=== PATIENT | female | born 1985 | race American Indian/Alaskan Native ===

== ENCOUNTER 2016-12-01 11:22 | Emergency (ER) | payer OTHER ==
[2016-12-01] MEDS ORDERED: Sodium Chloride 0.9% 1,000 ML IV STA (11:40)
--- NOTE | 2016-12-01 11:40 | ED PDOC ---
Arrival/HPI - General Chief Complaint: GI Problem Time Seen by Provider: 12/01/16 11:30 Historian: Patient - History of Present Illness Time/Duration: Other (Yesterday) Symptom Onset: Gradual Symptom Course: Unchanged Quality: Aching Severity Level: Moderate Activities at Onset: Rest Associated Symptoms (Text): 12/01/16 11:38 Patient was out drinking two nights ago. Yesterday she developed lower abdominal pain along with diarrhea. This morning nausea and vomiting started. She has had similar episodes multiple times previously. No dysuria frequency urgency or hematuria. No fever or chills. No travel. No vaginal discharge or bleeding. LMP is 1 week ago. Past Medical History - Infectious Disease Hx of Infectious Diseases: None - Past Medical History Past Medical History: Non-Contributing - Cardiac Hx Hypertension: Yes (GESTATIONAL) - Gastrointestinal Hx Gastrointestinal Disorders: Yes Hx Diarrhea: Yes - Genitourinary/Gynecological Hx Genitourinary Disorders: No - Psychiatric Hx Substance Use: No - Anesthesia Hx Anesthesia: No Hx Anesthesia Reactions: No Family/Social History - Physician Review Nursing Documentation Reviewed: Yes Family/Social History: Unknown Family HX Smoking Status: Light Smoker < 10 Cigarettes Daily Hx Alcohol Use: Yes Frequency of alcohol use: Socially Hx Substance Use: No Allergies/Home Meds Allergies/Adverse Reactions: Allergies No Known Allergies Allergy (Verified 12/01/16 11:23) Review of Systems - Physician Review All systems were reviewed & negative as marked: Yes - Review of Systems Constitutional: absent: Fatigue, Fevers Respiratory: Normal. absent: SOB, Cough, Wheezing Cardiovascular: Normal. absent: Chest Pain, Palpitations, Syncope Gastrointestinal: Abdominal Pain, Diarrhea, Nausea, Vomiting. absent: Constipation, Anorexia Genitourinary Female: absent: Dysuria, Frequency, Hematuria, Vaginal Bleeding, Vaginal Discharge Neurological: absent: Headache, Dizziness Physical Exam Vital Signs Temp Pulse Resp BP Pulse Ox 12/01/16 11:27 97.9 F 72 18 130/83 100 Temperature: Afebrile Blood Pressure: Normal Pulse: Regular Respiratory Rate: Normal Appearance: Positive for: Well-Appearing, Non-Toxic, Comfortable Pain Distress: None Mental Status: Positive for: Alert and Oriented X 3 - Systems Exam Head: Present: Atraumatic, Normocephalic Pupils: Present: PERRL Extroacular Muscles: Present: EOMI Conjunctiva: Present: Normal Mouth: Present: Moist Mucous Membranes Pharnyx: No: ERYTHEMA, EXUDATE, TONSILS ENLARGED Neck: Present: Normal Range of Motion. No: MIDLINE TENDERNESS, Paraspinal Tenderness Respiratory/Chest: Present: Clear to Auscultation, Good Air Exchange. No: Respiratory Distress, Accessory Muscle Use Cardiovascular: Present: Regular Rate and Rhythm, Normal S1, S2. No: Murmurs Abdomen: Present: Normal Bowel Sounds. No: Tenderness, Distention, Peritoneal Signs, Rebound, Guarding Back: Present: Normal Inspection. No: CVA Tenderness, Midline Tenderness, Paraspinal Tenderness Upper Extremity: Present: Normal Inspection. No: Cyanosis, Edema Lower Extremity: Present: Normal Inspection. No: Edema Neurological: Present: GCS=15, CN II-XII Intact, Speech Normal, Motor Func Grossly Intact Skin: Present: Warm, Dry, Normal Color. No: Rashes Psychiatric: Present: Alert, Oriented x 3, Normal Insight, Normal Concentration Medical Decision Making ED Course and Treatment: 12/01/16 12:32 Symptoms improved. Discharged home accompanied by boyfriend. Follow-up with PMD. Follow up in ER as needed. - Lab Interpretations Lab Results: 12/01/16 11:50 12/01/16 11:50 Lab Results 12/01/16 11:50: Sodium 137, Potassium 4.0, Chloride 103, Carbon Dioxide 27, Anion Gap 11, BUN 14, Creatinine 0.7, Est GFR ( Amer) > 60, Est GFR (Non- Af Amer) > 60, Random Glucose 93, Calcium 9.5, Total Bilirubin 0.9, AST 21, ALT 30, Alkaline Phosphatase 45, Total Protein 7.2, Albumin 4.1, Globulin 3.2, Albumin/Globulin Ratio 1.3, Lipase 170 12/01/16 11:50: Urine Color Yellow, Urine Appearance Clear, Urine pH 6.0, Ur Specific Hendricks 1.020, Urine Protein Negative, Urine Glucose (UA) Negative, Urine Ketones Negative, Urine Blood Moderate H, Urine Nitrate Negative, Urine Bilirubin Negative, Urine Urobilinogen 0.2, Ur Leukocyte Esterase Negative, Urine RBC 2 - 5, Urine WBC 0 - 2, Ur Epithelial Cells 1 - 3, Urine Bacteria Few , Urine HCG, Qual Negative 12/01/16 11:50: WBC 5.2, RBC 3.99, Hgb 12.2, Hct 35.6 L, MCV 89.2, MCH 30.6, MCHC 34.3, RDW 11.9, Plt Count 258, MPV 9.8, Gran % 58.4, Lymph % (Auto) 31.2, Kingfisher % (Auto) 7.9 H, Eos % (Auto) 2.3, Baso % (Auto) 0.2, Gran # 3.01, Lymph # 1.6, Kingfisher # 0.4, Eos # 0.1, Baso # 0.01 - Medication Orders Current Medication Orders: Sodium Chloride (Sodium Chloride 0.9%) 1,000 mls @ 1,000 mls/hr IV .Q1H STA Stop: 12/01/16 12:39 Last Admin: 12/01/16 11:51 Dose: 1,000 mls/hr Discontinued Medications Ketorolac Tromethamine (Toradol) 30 mg IVP STAT STA Stop: 12/01/16 11:41 Last Admin: 12/01/16 12:06 Dose: 30 mg Ondansetron HCl (Zofran Inj) 4 mg IVP STAT STA Stop: 12/01/16 11:41 Last Admin: 12/01/16 12:07 Dose: 4 mg Pantoprazole Sodium (Protonix Inj) 40 mg IVP STAT STA Stop: 12/01/16 11:41 Last Admin: 12/01/16 12:06 Dose: 40 mg Disposition/Present on Arrival - Present on Arrival Any Indicators Present on Arrival: No History of DVT/PE: No History of Uncontrolled Diabetes: No Urinary Catheter: No History of Decub. Ulcer: No History Surgical Site Infection Following: None - Disposition Have Diagnosis and Disposition been Completed?: Yes Diagnosis: Gastroenteritis, Nausea vomiting and diarrhea, Abdominal pain Disposition: HOME/ ROUTINE Disposition Time: 12:33 Patient Plan: Discharge Condition: IMPROVED Discharge Instructions (ExitCare): Gastroenteritis (ED), Acute Diarrhea (ED), Acute Nausea and Vomiting (ED), Dehydration (ED), Acute Abdominal Pain (ED) Additional Instructions: Clear liquids for 24 hours. Follow-up with PMD. Follow up in the ER as needed. Prescriptions: Pantoprazole Sodium [Protonix] 40 mg PO DAILY #20 ect Ondansetron [Zofran Odt] 4 mg SL Q6 #20 odt
[2016-12-01 11:42] VITALS: O2SAT 100; BMI 20.7
[2016-12-01 11:58] LABS: ADD MANUAL DIFF? NO
[2016-12-01 12:04] LABS: BASO # 0.01 K/mm3 (0.0-2.0); BASO % 0.2 % (0.0-3.0); EOS # 0.1 (0.0-0.7); EOS % 2.3 % (1.5-5.0); GRAN # 3.01 (1.4-6.5); GRAN % 58.4 % (50.0-68.0); HEMATOCRIT 35.6 % (36.0-48.0); LYMPH # 1.6 (1.2-3.4); LYMPH % 31.2 % (22.0-35.0); MEAN CELL VOLUME 89.2 fL (80.0-105.0); MEAN CORPUSCULAR HEMOGLOBIN 30.6 pg (25.0-35.0); MEAN CORPUSCULAR HGB CONC 34.3 g/dl (31.0-37.0); MEAN PLATELET VOLUME 9.8 fl (7.0-11.0); MONO # 0.4 (0.1-0.6); MONO % 7.9 % (1.0-6.0); PLATELET COUNT 258 10^3/uL (120.0-450.0); RED CELL DISTRIBUTION WIDTH 11.9 % (11.5-14.5); URINE BILIRUBIN NEGATIVE (NEGATIVE); URINE BLOOD MODERATE (NEGATIVE); URINE GLUCOSE (UA) NEGATIVE (NEGATIVE); URINE KETONE NEGATIVE (NEGATIVE); URINE LEUKOCYTE ESTERASE NEGATIVE Leu/uL (NEGATIVE); URINE PROTEIN NEGATIVE mg/dL (<30 mg/dL); URINE UROBILINOGEN 0.2 E.U./dL (<1 E.U./dL); WHITE BLOOD COUNT 5.2 10^3/ul (4.5-11.0)
[2016-12-01 12:09] LABS: URINE APPEARANCE CLEAR (CLEAR); URINE COLOR YELLOW (YELLOW)
[2016-12-01 12:11] LABS: ALB/GLOB RATIO 1.3 (1.1-1.8); ALKALINE PHOSPHATASE 45 U/L (38-133); ALT/SGPT 30 U/L (7-56); AST/SGOT 21 U/L (15-39); BILIRUBIN,TOTAL 0.9 mg/dL (0.2-1.3); BLOOD UREA NITROGEN 14 mg/dL (7-21); CALCIUM 9.5 mg/dL (8.4-10.5); CARBON DIOXIDE 27 mmol/L (21-33); CHLORIDE 103 mmol/L (98-107); GFR AFRICAN-AMERICAN > 60; GLUCOSE,RANDOM 93 mg/dL (70-110); LIPASE 170 U/L (23-300); SODIUM 137 mmol/L (132-148); TOTAL PROTEIN 7.2 g/dL (5.8-8.3)
[2016-12-01 12:14] LABS: URINE BACTERIA FEW (NEG); URINE WBC 0 - 2 /hpf (0-6)
[2016-12-01 13:01] VITALS: BP 121/72; PULSE 71; RESP 20; TEMP 97.5
== END 2016-12-01 13:01 | disposition home or self-care (01) ==
LOC: ED 11:22
DX: K52.9 Noninfective gastroenteritis and colitis, unspecified (principal)
CPT/HCPCS: 80053; 81001; 83690; 84703; 85025; 96374; 96375; 99284; C9113; J1885; J2405; J7040

== ENCOUNTER 2017-12-06 09:48 | Emergency (ER) | payer OTHER ==
[2017-12-06 09:57] VITALS: BMI 21.2
[2017-12-06 10:01] VITALS: TEMP 98.6
[2017-12-06] MEDS ORDERED: Sodium Chloride 0.9% 1,000 ML IV STA (10:09)
--- NOTE | 2017-12-06 10:13 | ED PDOC ---
Arrival/HPI - General Chief Complaint: Headache Time Seen by Provider: 12/06/17 09:50 Historian: Patient - History of Present Illness Narrative History of Present Illness (Text): 12/06/17 10:32 Patient is a 32 F with history of migraines not documented presenting with complaints of migraine headache which began 3 days ago. Patient states this migraine is not easily controlled as her other migraines which she usually experiences a few times a month. Describes migraine as sharp pain in the back of her neck radiating from her forehead, associated with nausea, vomiting, photophobia, and phonophobia. Patient took aspirin, alleve, and motrin in attempts to relieve the pain with no success. Denies fevers, chills, shortness of breath, chest pain, palpitations, cough, abdominal pain. Time/Duration: Prior to Arrival, < week Symptom Course: Unchanged Quality: Aching Severity Level: 10 Activities at Onset: Rest Past Medical History - Provider Review Nursing Documentation Reviewed: Yes - Infectious Disease Hx of Infectious Diseases: None - Past Medical History Past Medical History: Non-Contributing - Cardiac Hx Hypertension: Yes (GESTATIONAL) - Gastrointestinal Hx Gastrointestinal Disorders: Yes Hx Diarrhea: Yes - Genitourinary/Gynecological Hx Genitourinary Disorders: No - Psychiatric Hx Substance Use: No - Anesthesia Hx Anesthesia: No Hx Anesthesia Reactions: No Hx Malignant Hyperthermia: No Family/Social History - Physician Review Nursing Documentation Reviewed: Yes Family/Social History: Other (non-contributory) Smoking Status: Light Smoker < 10 Cigarettes Daily Hx Alcohol Use: Yes Hx Substance Use: No Allergies/Home Meds Allergies/Adverse Reactions: Allergies No Known Allergies Allergy (Verified 12/01/16 11:23) Review of Systems - Physician Review All systems were reviewed & negative as marked: Yes - Review of Systems Constitutional: Normal. absent: Fatigue Eyes: Normal, Photophobia. absent: Vision Changes ENT: Normal Respiratory: absent: SOB, Cough Cardiovascular: Normal. absent: Chest Pain, Palpitations Gastrointestinal: Nausea, Vomiting. absent: Abdominal Pain Genitourinary Female: Normal. absent: Dysuria Neurological: Headache. absent: Dizziness Endocrine: Normal Hemo/Lymphatic: Normal Psychiatric: Normal. absent: Anxiety Physical Exam Vital Signs Reviewed: Yes Vital Signs Temp Pulse Resp BP Pulse Ox 12/06/17 14:00 88 18 123/79 99 12/06/17 13:00 98.6 F 79 18 118/79 98 12/06/17 11:48 78 18 128/79 98 12/06/17 09:48 98.6 F 81 16 119/81 99 Temperature: Afebrile Blood Pressure: Normal Pulse: Regular Respiratory Rate: Normal Appearance: Positive for: Well-Appearing, Non-Toxic, Comfortable Pain Distress: None Mental Status: Positive for: Alert and Oriented X 3 - Systems Exam Head: Present: Atraumatic, Normocephalic Pupils: Present: PERRL Extroacular Muscles: Present: EOMI Conjunctiva: Present: Normal Mouth: Present: Moist Mucous Membranes Neck: Present: Normal Range of Motion Respiratory/Chest: Present: Clear to Auscultation. No: Wheezes, Rales, Rhonchi Cardiovascular: Present: Regular Rate and Rhythm, Normal S1, S2 Abdomen: Present: Normal Bowel Sounds. No: Tenderness, Distention Upper Extremity: Present: Normal Inspection. No: Edema Lower Extremity: Present: Normal Inspection. No: Edema Neurological: Present: GCS=15, CN II-XII Intact, Speech Normal Skin: Present: Warm, Normal Color Psychiatric: Present: Alert, Oriented x 3, Normal Insight, Normal Concentration Medical Decision Making ED Course and Treatment: 12/06/17 10:31 CT head w/o contrast Reglan CBC, BMP, PT/PTT, POC 12/06/17 14:39 Labs revealed no abnormalities CT head reveals: HEMORRHAGE: No acute parenchymal, subarachnoid nor extra-axial hemorrhage. BRAIN: No evidence of large acute infarct. No obvious parenchymal nor extra-axial mass or collection is identified on this noncontrast study. Ventricular and sulcal size are within range of normal for this patient's stated age. VENTRICLES: No obstructive hydrocephalus. CALVARIUM: Calvarium intact. PARANASAL SINUSES: Unremarkable as visualized. No significant inflammatory changes. MASTOID AIR CELLS: Unremarkable as visualized. No inflammatory changes. OTHER FINDINGS: None. IMPRESSION: No acute intracranial hemorrhage. POC test negative Upon being discharged patient states she felt much better, was walking out of the emergency department able to ambulate fine,was making jokes and laughing. Patient states she will follow up with her PMD and ask for referral to a headache specialist this week. Re-evaluation Time: 14:00 (headache resolved) Reassessment Condition: Re-examined, Improved - Lab Interpretations Lab Results: 12/06/17 10:10 12/06/17 10:10 Lab Results 12/06/17 10:10: Sodium 141, Potassium 4.0, Chloride 106, Carbon Dioxide 25, Anion Gap 14, BUN 12, Creatinine 0.6 L, Est GFR ( Amer) > 60, Est GFR ( Non-Af Amer) > 60, Random Glucose 94, Calcium 9.6 12/06/17 10:10: PT 11.4, INR 0.99, APTT 26.6 12/06/17 10:10: WBC 6.6 D, RBC 3.75, Hgb 11.3 L, Hct 33.9 L, MCV 90.4, MCH 30.1 , MCHC 33.3, RDW 12.2, Plt Count 277, MPV 10.2, Gran % 48.5 L, Lymph % (Auto) 41.0 H, Holt % (Auto) 8.8 H, Eos % (Auto) 1.2 L, Baso % (Auto) 0.5, Gran # 3.21 , Lymph # (Auto) 2.7, Holt # (Auto) 0.6, Eos # (Auto) 0.1, Baso # (Auto) 0.03 Interpretation: All labs normal - RAD Interpretation Radiology Orders: 12/06/17 10:25 HEAD W/O CONTRAST [CT] Stat Airways Control Specialist: Radiologist - Medication Orders Current Medication Orders: Discontinued Medications Acetaminophen/Butalbital/Caffeine (Fioricet) 1 tab PO ONCE ONE Stop: 12/06/17 13:20 Last Admin: 12/06/17 13:34 Dose: 1 tab Sodium Chloride (Sodium Chloride 0.9%) 1,000 mls @ 999 mls/hr IV .Q1H1M STA Stop: 12/06/17 11:09 Last Admin: 12/06/17 10:39 Dose: 999 mls/hr eMAR Start Stop Document 12/06/17 10:39 EWO (Rec: 12/06/17 10:39 [email or web address] [id number]) Intravenous Solution Start Date 12/06/17 Start Time 10:39 End Date 12/06/17 End time 11:39 Total Infusion Time 60 Ketorolac Tromethamine (Toradol) 30 mg IVP STAT STA Stop: 12/06/17 12:28 Last Admin: 12/06/17 12:42 Dose: 30 mg Metoclopramide HCl (Reglan) 10 mg IVP STAT STA Stop: 12/06/17 10:10 Last Admin: 12/06/17 10:39 Dose: 10 mg IVP Administration Document 12/06/17 10:39 BLAZEKymberly (Rec: 12/06/17 10:39 BLAZEKymberly [id number]) Charges for Administration # of IVP Administrations 1 Disposition/Present on Arrival - Present on Arrival Any Indicators Present on Arrival: No History of DVT/PE: No History of Uncontrolled Diabetes: No Urinary Catheter: No History of Decub. Ulcer: No History Surgical Site Infection Following: None - Disposition Have Diagnosis and Disposition been Completed?: Yes Diagnosis: Migraine Disposition: HOME/ ROUTINE Disposition Time: 13:50 Patient Plan: Discharge Patient Problems: Current Active Problems Problem Status Onset Migraine Acute Condition: GOOD Discharge Instructions (ExitCare): Migraine Headache (DC), Headache, Adult (DC) Additional Instructions: Briones, thank you for letting us take care of you today. You were treated for your migraine. The emergency medical care you received today was directed at your acute symptoms. If you were prescribed any medication, please fill it and take as directed. It may take several days for your symptoms to resolve. Return to the Emergency Department if your symptoms worsen, do not improve, or if you have any other problems. Please contact your doctor or call one of the physicians/clinics you have been referred to that are listed on the Patient Visit Information form that is included in your discharge packet. Bring any paperwork you were given at discharge with you along with any medications you are taking to your follow up visit. Our treatment cannot replace ongoing medical care by a primary care provider (PCP) outside of the emergency department. Thank you for allowing the [facility] team to be part of your care today. Please follow up with your PMD regarding this emergency department visit especially for referral to neurology/headache specialist. If you had an X-Ray or CT scan: A Radiologist will review the ED reading if any change in treatment is needed we will contact you. If you had a blood, urine, or wound culture: It will take several days for the results, if any change in treatment is needed we will contact you. If you had an STI test: It will take 48 hours for the results. Please call after 1 week if you have not heard back. Prescriptions: Acetaminophen/Butalbital/Caf [Fioricet] 1 tab PO PRN PRN #3 tab PRN Reason: Headache Referrals: Luis Angel Corey MD [Family Provider] - Follow up with primary Forms: [facility] (Portuguese)
[2017-12-06 10:51] LABS: BASO # 0.03 K/mm3 (0.0-2.0); BASO % 0.5 % (0.0-3.0); EOS # 0.1 (0.0-0.7); EOS % 1.2 % (1.5-5.0); GRAN # 3.21 (1.4-6.5); GRAN % 48.5 % (50.0-68.0); HEMOGLOBIN 11.3 g/dL (12.0-16.0); LYMPH # 2.7 (1.2-3.4); MEAN CELL VOLUME 90.4 fl (80.0-105.0); MEAN CORPUSCULAR HEMOGLOBIN 30.1 pg (25.0-35.0); MEAN CORPUSCULAR HGB CONC 33.3 g/dl (31.0-37.0); MEAN PLATELET VOLUME 10.2 fl (7.0-11.0); MONO # 0.6 (0.1-0.6); MONO % 8.8 % (1.0-6.0); RBC 3.75 10^6/uL (3.5-6.1); RED CELL DISTRIBUTION WIDTH 12.2 % (11.5-14.5); WHITE BLOOD COUNT 6.6 10^3/ul (4.5-11.0)
[2017-12-06 11:00] LABS: CALCIUM 9.6 mg/dL (8.4-10.5); GFR AFRICAN-AMERICAN > 60; GFR NON-AFRICAN AMERICAN > 60
[2017-12-06 11:03] LABS: BLOOD UREA NITROGEN 12 mg/dL (7-21)
[2017-12-06 11:30] LABS: INR 0.99 (0.93-1.08); PARTIAL THROMBOPLASTIN TIME 26.6 Seconds (25.1-36.5); PROTHROMBIN TIME 11.4 SECONDS (9.4-12.5)
--- NOTE | 2017-12-06 12:17 | CT ---
PROCEDURE: CT HEAD WITHOUT CONTRAST. HISTORY: Worsening migraine COMPARISON: No prior study available for comparison TECHNIQUE: Axial computed tomography images were obtained through the head/brain without intravenous contrast. Radiation dose: Total exam DLP = 778.46 mGy-cm. This CT exam was performed using one or more of the following dose reduction techniques: Automated exposure control, adjustment of the mA and/or kV according to patient size, and/or use of iterative reconstruction technique. FINDINGS: HEMORRHAGE: No acute parenchymal, subarachnoid nor extra-axial hemorrhage. BRAIN: No evidence of large acute infarct. No obvious parenchymal nor extra-axial mass or collection is identified on this noncontrast study. Ventricular and sulcal size are within range of normal for this patient's stated age. VENTRICLES: No obstructive hydrocephalus. CALVARIUM: Calvarium intact. PARANASAL SINUSES: Unremarkable as visualized. No significant inflammatory changes. MASTOID AIR CELLS: Unremarkable as visualized. No inflammatory changes. OTHER FINDINGS: None. IMPRESSION: No acute intracranial hemorrhage.
[2017-12-06] MEDS ORDERED: Apap-Butalbital-Caffeine 325-50-40mg Tab PO ONE (13:19)
[2017-12-06 14:18] VITALS: RESP 18
[2017-12-06 14:21] VITALS: BP 123/79; PULSE 88; O2SAT 99
== END 2017-12-06 14:20 | disposition home or self-care (01) ==
LOC: ED 09:48
DX: G43.909 Migraine, unspecified, not intractable, without status migrainosus (principal); F17.210 Nicotine dependence, cigarettes, uncomplicated
CPT/HCPCS: 70450; 80048; 85025; 85610; 85730; 96361; 96374; 96375; 99285; J1885; J2765; J7040

== ENCOUNTER 2018-06-23 10:09 | Emergency (ER) | payer OTHER ==
[2018-06-23 10:27] VITALS: BMI 22.1
[2018-06-23 10:34] VITALS: TEMP 97.8; O2SAT 100
--- NOTE | 2018-06-23 10:43 | ED PDOC ---
Arrival/HPI - General Chief Complaint: Female Genitourinary Historian: Patient - History of Present Illness Narrative History of Present Illness (Text): 06/23/18 10:40 33 y/o female, no significant pmh, LMP 05/21/18, nkda, c/o vaginal spotting yesterday with no cramp or pain. Pt. stated that she started to have vaginal spotting yesterday, told she is ? so she is here for reassurance vs. menstrual cycle, no pain or abdominal pain, no fever or chills, no nausea/vomiting, no night sweat, no dizziness, no change in vision, no other medical or psychological complaints. Past Medical History - Provider Review Nursing Documentation Reviewed: Yes - Infectious Disease Hx of Infectious Diseases: None - Past Medical History Past Medical History: Non-Contributing - Cardiac Hx Cardiac Disorders: Yes Hx Hypertension: Yes (GESTATIONAL) - Pulmonary Hx Respiratory Disorders: No - Neurological Hx Neurological Disorder: No - HEENT Hx HEENT Disorder: No - Renal Hx Renal Disorder: No - Endocrine/Metabolic Hx Endocrine Disorders: No - Hematological/Oncological Hx Blood Disorders: No - Integumentary Hx Dermatological Disorder: No - Musculoskeletal/Rheumatological Hx Musculoskeletal Disorders: No - Gastrointestinal Hx Gastrointestinal Disorders: Yes Hx Diarrhea: Yes - Genitourinary/Gynecological Hx Genitourinary Disorders: No - Psychiatric Hx Psychophysiologic Disorder: No Hx Substance Use: No - Anesthesia Hx Anesthesia: No Hx Anesthesia Reactions: No Hx Malignant Hyperthermia: No Family/Social History - Physician Review Nursing Documentation Reviewed: Yes Family/Social History: Unknown Family HX Smoking Status: Light Smoker < 10 Cigarettes Daily Hx Alcohol Use: Yes Hx Substance Use: No Allergies/Home Meds Allergies/Adverse Reactions: Allergies No Known Allergies Allergy (Verified 06/23/18 10:27) Home Medications: Home Meds Medication Instructions Recorded Confirmed No Known Home Med 06/23/18 06/23/18 Review of Systems - Review of Systems Constitutional: absent: Fatigue, Fevers Eyes: absent: Vision Changes ENT: absent: Hearing Changes Respiratory: absent: SOB, Cough Cardiovascular: absent: Chest Pain Gastrointestinal: absent: Abdominal Pain, Nausea, Vomiting Genitourinary Female: Vaginal Bleeding. absent: Dysuria, Frequency, Hematuria, Urine Output Changes, Vaginal Discharge Musculoskeletal: absent: Arthralgias, Back Pain, Myalgias Skin: absent: Rash, Pruritis Neurological: absent: Headache, Dizziness Psychiatric: absent: Anxiety, Depression, Suicidal Ideation Physical Exam Vital Signs Reviewed: Yes Vital Signs Temp Pulse Resp BP Pulse Ox 06/23/18 10:33 97.8 F 64 17 148/43 L 100 Temperature: Afebrile Pulse: Regular Respiratory Rate: Normal Appearance: Positive for: Well-Appearing, Non-Toxic, Comfortable Pain Distress: None Mental Status: Positive for: Alert and Oriented X 3 - Systems Exam Head: Present: Atraumatic, Normocephalic Pupils: Present: PERRL Extroacular Muscles: Present: EOMI Conjunctiva: Present: Normal Mouth: Present: Moist Mucous Membranes Neck: Present: Normal Range of Motion Respiratory/Chest: Present: Clear to Auscultation, Good Air Exchange. No: Respiratory Distress, Accessory Muscle Use Cardiovascular: Present: Regular Rate and Rhythm, Normal S1, S2. No: Murmurs Abdomen: No: Tenderness, Distention, Peritoneal Signs, Rebound, Guarding Genitourinary/Pelvic Exam: Present: Other (Pt. declined. ) Back: Present: Normal Inspection. No: CVA Tenderness, Midline Tenderness, Paraspinal Tenderness Upper Extremity: Present: Normal Inspection. No: Cyanosis, Edema Lower Extremity: Present: Normal Inspection. No: Edema Neurological: Present: GCS=15, CN II-XII Intact, Speech Normal, Motor Func Grossly Intact, Gait Normal, Memory Normal Skin: Present: Warm, Dry, Normal Color. No: Rashes Psychiatric: Present: Alert, Oriented x 3, Normal Insight, Normal Concentration Medical Decision Making ED Course and Treatment: 06/23/18 10:43 -labs -observe and reassess 06/23/18 12:26 -Beta hcg 12, sonogram ordered 06/23/18 14:47 -Urine hcg is negative in the room -Beta hcg is 12.49, vaguely elevated -Labs are non-significant -UA show no UTI -Blood type is O+ -Sonogram show Unremarkable pelvic ultrasound. Specifically, no visible products of conception or ectopic gestation. -Pt. feels well, no pain, no vaginal bleeding, refused plevic exam as she is asymptomatic with no vaginal spotting, clinically concerning for failure of this new vs. too early to be determined, expressed to the patient and advised to repeat the betahcg in 2 days. -Discharge home with education on your beta hcg is 12.49 today, advised you to repeat the beta hcg test in 48 hours to see the trend, follow up with your own pmd and obgyn within 2 days, return to the ER for any new or worsening signs or symptoms. - RAD Interpretation Radiology Orders: Date of service: 06/23/2018 HISTORY: preg? vaginal spotting PROCEDURE: First trimester ultrasound COMPARISON: None TECHNIQUE: Standard protocol for this study/examination. FINDINGS: UTERUS: Measures 3.3 x 4.8 x 7.0 cm. Normal in size and appearance. No fibroid or other mass lesion seen. ENDOMETRIUM: Measures 3.9 mm in diameter. No ultrasound findings to suggest gestational sac, fluid, debris, mass or polyp or other pathologic process within the endometrium. CERVIX: No cervical abnormality identified. RIGHT OVARY: Measures 0.9 x 2.8 x 2.7 cm. No solid mass. Normal flow. LEFT OVARY: Measures 1.4 x 3 x 2.6 cm. No solid mass. Normal flow. FREE FLUID: No significant free fluid noted. OTHER FINDINGS: None. IMPRESSION: Unremarkable pelvic ultrasound. Specifically, no visible products of conception or ectopic gestation. Sound Recordist: Radiologist - PA / [employer] / Resident Statement MD/DO has reviewed & agrees with the documentation as recorded. Disposition/Present on Arrival - Present on Arrival Any Indicators Present on Arrival: No History of DVT/PE: No History of Uncontrolled Diabetes: No Urinary Catheter: No History of Decub. Ulcer: No History Surgical Site Infection Following: None - Disposition Have Diagnosis and Disposition been Completed?: Yes Diagnosis: test positive Disposition: HOME/ ROUTINE Disposition Time: 14:48 Patient Plan: Discharge Condition: GOOD Additional Instructions: -Discharge home with education on your beta hcg is 12.49 today, advised you to repeat the beta hcg test in 48 hours to see the trend, follow up with your own pmd and obgyn within 2 days, return to the ER for any new or worsening signs or symptoms. Referrals: Aravind Castillo MD [Staff Provider] - Follow up with primary [facility] [place] [Outside] - Follow up with primary Forms: [employer] (Nauruan), WORK NOTE
[2018-06-23 11:48] LABS: BASO # 0.02 K/mm3 (0.0-2.0); BASO % 0.3 % (0.0-3.0); EOS # 0.1 (0.0-0.7); EOS % 1.1 % (1.5-5.0); GRAN # 3.46 (1.4-6.5); GRAN % 56.9 % (50.0-68.0); HEMOGLOBIN 10.6 g/dL (12.0-16.0); LYMPH % 32.8 % (22.0-35.0); MEAN CORPUSCULAR HEMOGLOBIN 30.9 pg (25.0-35.0); MEAN CORPUSCULAR HGB CONC 33.2 g/dl (31.0-37.0); MEAN PLATELET VOLUME 9.8 fl (7.0-11.0); MONO # 0.5 (0.1-0.6); MONO % 8.9 % (1.0-6.0); RBC 3.43 10^6/uL (3.5-6.1); RED CELL DISTRIBUTION WIDTH 12.3 % (11.5-14.5); WHITE BLOOD COUNT 6.1 10^3/uL (4.5-11.0)
[2018-06-23 11:49] LABS: URINE BILIRUBIN NEGATIVE (NEGATIVE); URINE BLOOD LARGE (NEGATIVE); URINE GLUCOSE (UA) NEGATIVE (NEGATIVE); URINE LEUKOCYTE ESTERASE NEGATIVE Leu/uL (NEGATIVE); URINE PROTEIN NEGATIVE mg/dL (<30 mg/dL); URINE UROBILINOGEN 0.2 E.U./dL (<1 E.U./dL)
[2018-06-23 11:50] LABS: URINE APPEARANCE SL CLOUDY (CLEAR); URINE COLOR YELLOW (YELLOW)
[2018-06-23 11:53] LABS: URINE RBC TNTC /hpf (0-2)
[2018-06-23 11:54] LABS: URINE BACTERIA FEW (NEG); URINE WBC 0 - 2 /hpf (0-6)
[2018-06-23 11:59] LABS: ALB/GLOB RATIO 1.2 (1.1-1.8); ALBUMIN 3.7 g/dL (3.0-4.8); ALT/SGPT 22 U/L (7-56); AST/SGOT 20 U/L (14-36); BLOOD UREA NITROGEN 11 mg/dL (7-21); CALCIUM 9.4 mg/dL (8.4-10.5); GFR NON-AFRICAN AMERICAN > 60
[2018-06-23 12:51] VITALS: RESP 18
[2018-06-23 14:12] VITALS: BP 117/77; PULSE 76
--- NOTE | 2018-06-23 14:29 | US ---
Date of service: 06/23/2018 HISTORY: preg? vaginal spotting PROCEDURE: First trimester ultrasound COMPARISON: None TECHNIQUE: Standard protocol for this study/examination. FINDINGS: UTERUS: Measures 3.3 x 4.8 x 7.0 cm. Normal in size and appearance. No fibroid or other mass lesion seen. ENDOMETRIUM: Measures 3.9 mm in diameter. No ultrasound findings to suggest gestational sac, fluid, debris, mass or polyp or other pathologic process within the endometrium. CERVIX: No cervical abnormality identified. RIGHT OVARY: Measures 0.9 x 2.8 x 2.7 cm. No solid mass. Normal flow. LEFT OVARY: Measures 1.4 x 3 x 2.6 cm. No solid mass. Normal flow. FREE FLUID: No significant free fluid noted. OTHER FINDINGS: None. IMPRESSION: Unremarkable pelvic ultrasound. Specifically, no visible products of conception or ectopic gestation.
== END 2018-06-23 14:54 | disposition home or self-care (01) ==
LOC: ED 10:09
DX: Z32.01 Encounter for pregnancy test, result positive (principal)